=== PATIENT | female | born 1995 | race Caucasian/White ===

== ENCOUNTER 2018-12-06 18:20 | Emergency (ER) | payer SELFPAY ==
[~2018-12-06] VITALS: Ht 149.9 cm; Wt 49.7 kg
--- NOTE | 2018-12-06 18:50 | NUR ---
NO ANSWER WHEN CALLED FROM [facility]OB[facility] X 1
[2018-12-06 19:05] VITALS: BP 115/78
--- NOTE | 2018-12-06 20:34 | NUR ---
AMBULATED W/OUT DIFFICULTY TO DISCHARGE DESK. REVIEWED MEDICATION PLAN/IMPORTANCE OF RICE F/U W/ PCP FOR CONTINUED EVAL NEEDED FOR CONTINUED DISCOMFORT
== END 2018-12-06 20:38 | disposition home or self-care (01) ==
LOC: ED 20:32
DX: S76.312A Strain of muscle, fascia and tendon of the posterior muscle group at thigh level, left thigh, initial encounter (principal); R04.2 Hemoptysis; X58.XXXA Exposure to other specified factors, initial encounter; Y93.89 Activity, other specified; Y92.89 Other specified places as the place of occurrence of the external cause; Y99.8 Other external cause status
CPT/HCPCS: 71046; 99283

== ENCOUNTER 2020-01-10 17:24 | Emergency (ER) | payer OTHER ==
[~2020-01-10] VITALS: Ht 149.9 cm; Wt 46.5 kg
--- NOTE | 2020-01-10 18:10 | NUR ---
PT IS AT THE BEDSIDE WITH HER PARTNER. NO ACUTE CHANGES NOTED SINCE HER ARRIVAL HERE TODAY. SUSPICIOUS URINE SAMPLE DELIVERED TO THE LAB FOR ANALYSIS. PAIN INCREASES AFTER URINATION, HOWEVER IS TOLERABLE OTHERWISE.
[2020-01-10 18:20] LABS: MICROSCOPIC INDICATED
--- NOTE | 2020-01-10 18:58 | NUR ---
SJ (RN) IS ASSUMING CARE OF THIS PT AT THIS TIME. SBAR REPORT WAS EXCHANGED AT THE BEDSIDE.
[2020-01-10 19:03] LABS: HCG UR SG 1.025 (1.003-1.030)
--- NOTE | 2020-01-10 19:10 | NUR ---
assumed care of pt. pt here for painful urination and increased frequency/urgency. pt reports that she has also had hematuria. urine has been collected and sent. pt to CT scan. SO at bedside
[2020-01-10] MEDS ORDERED: CEFDINIR 300 MG CAPSULE ONE (20:16)
[2020-01-10] MEDS ORDERED: CEFDINIR 300 MG CAPSULE PO ONE (20:30)
[2020-01-10 20:35] VITALS: BP 105/74
== END 2020-01-10 20:52 | disposition home or self-care (01) ==
LOC: ED 20:01
DX: N30.01 Acute cystitis with hematuria (principal); R10.2 Pelvic and perineal pain; R30.0 Dysuria
CPT/HCPCS: 74176; 81001; 81025; 87077; 87086; 87186; 99284

== ENCOUNTER 2020-04-05 00:17 | Emergency (ER) | payer OTHER ==
[~2020-04-05] VITALS: Ht 149.9 cm; Wt 48.2 kg
[2020-04-05 01:21] LABS: MICROSCOPIC INDICATED
--- NOTE | 2020-04-05 01:48 | NUR ---
Break RN: urine resulted. chart up for MD to re-eval.
[2020-04-05 02:08] VITALS: BP 104/59
== END 2020-04-05 02:10 | disposition home or self-care (01) ==
LOC: ED 01:49
DX: N30.01 Acute cystitis with hematuria (principal)
CPT/HCPCS: 81001; 81025; 87077; 87086; 87186; 99283

== ENCOUNTER 2020-04-19 12:22 | Emergency (ER) | payer OTHER ==
[~2020-04-19] VITALS: Ht 149.9 cm; Wt 45.2 kg
[2020-04-19 12:50] VITALS: BP 115/82
[2020-04-19] MEDS ORDERED: FAMOTIDINE 20 MG TABLET ONE (13:21)
[2020-04-19] MEDS ORDERED: DIPHENHYDRAMINE 50 MG/ML, 1ML ONE (13:22)
--- NOTE | 2020-04-19 13:29 | NUR ---
Pt medicated per MAR for itching and rash. POC discussed. Pt denies other needs.
[2020-04-19] MEDS ORDERED: FAMOTIDINE 20 MG TABLET PO ONE (13:30)
[2020-04-19] MEDS ORDERED: DIPHENHYDRAMINE 50 MG/ML, 1ML IM ONE (13:30)
== END 2020-04-19 14:38 | disposition home or self-care (01) ==
LOC: ED 13:30
DX: T78.49XA Other allergy, initial encounter (principal); X58.XXXA Exposure to other specified factors, initial encounter; Y93.89 Activity, other specified; Y92.89 Other specified places as the place of occurrence of the external cause; Y99.8 Other external cause status
CPT/HCPCS: 96372; 99283; J1200; J7512

== ENCOUNTER 2020-08-01 21:17 | Emergency (ER) | payer OTHER ==
[~2020-08-01] VITALS: Ht 149.9 cm; Wt 47.0 kg
[2020-08-01 21:22] VITALS: BP 114/76
[2020-08-01] MEDS ORDERED: ACETAMINOPHEN 325 MG TABLET PO ONE (22:00)
[2020-08-01 22:47] LABS: HCG UR SG 1.008 (1.003-1.030)
[2020-08-01 22:49] LABS: MICROSCOPIC INDICATED
== END 2020-08-01 23:52 | disposition home or self-care (01) ==
LOC: ED 21:56
DX: N30.01 Acute cystitis with hematuria (principal); R30.0 Dysuria
CPT/HCPCS: 81001; 81025; 87077; 87086; 87186; 99283

== ENCOUNTER 2020-09-26 23:20 | Emergency (ER) | payer OTHER ==
[~2020-09-26] VITALS: Ht 149.9 cm; Wt 47.0 kg
[2020-09-26 23:21] VITALS: BP 98/71
[2020-09-27 00:03] LABS: HCG UR SG 1.009 (1.003-1.030); MICROSCOPIC AUTO
[2020-09-27] MEDS ORDERED: CEFDINIR 300 MG CAPSULE ONE (00:21)
[2020-09-27] MEDS ORDERED: PHENAZOPYRIDINE 200 MG TABLET ONE (00:29)
[2020-09-27] MEDS ORDERED: PHENAZOPYRIDINE 200 MG TABLET PO ONE (00:30)
[2020-09-27] MEDS ORDERED: CEFDINIR 300 MG CAPSULE PO ONE (00:30)
--- NOTE | 2020-09-27 01:03 | NUR ---
PT DISCHARGED PER PROVIDER ORDER. PT A/O X4 WITH STEADY GAIT. PT MEDICATED PER MAR WITH DISCHARGE PAPERS AND RX IN PT HAND AT DISCHARGE.
== END 2020-09-27 01:06 | disposition home or self-care (01) ==
LOC: ED 09-27 01:04
DX: N30.01 Acute cystitis with hematuria (principal)
CPT/HCPCS: 76770; 81001; 81025; 87077; 87086; 87186; 87491; 87591; 99284

== ENCOUNTER 2020-10-08 16:05 | Emergency (ER) | payer OTHER ==
[~2020-10-08] VITALS: Ht 149.9 cm; Wt 45.0 kg
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
[2020-10-08] MEDS ORDERED: LIDOCAINE-MPF 1%, 5ML ONE (16:47)
[2020-10-08] MEDS ORDERED: ACETAMINOPHEN 500 MG TABLET ONE (16:48)
[2020-10-08] MEDS ORDERED: L.E.T SOLUTION TP ONE ×2 (16:48→17:00)
[2020-10-08] MEDS ORDERED: DIPH,PERTUSS(ACELL),TET VAC/PF 0.5 ML IM-VACC ONE ×2 (16:48→17:00)
[2020-10-08] MEDS ORDERED: ONDANSETRON ODT 4 MG PO ONE (17:00)
[2020-10-08] MEDS ORDERED: ACETAMINOPHEN 500 MG TABLET PO ONE (17:00)
[2020-10-08] MEDS ORDERED: LIDOCAINE-MPF 1%, 5ML INFIL ONE (17:00)
[2020-10-08] MEDS ORDERED: ONDANSETRON ODT 4 MG ONE (17:20)
--- NOTE | 2020-10-08 17:25 | NUR ---
PT RESTING ON GURNEY. NADN. KING.
[2020-10-08 18:38] VITALS: BP 110/54
--- NOTE | 2020-10-08 18:39 | NUR ---
PT RESTING ON GURNEY. NADN. KING.
[2020-10-08] MEDS ORDERED: NEOSPORIN OINT. PKT 1 PACKET ONE (18:41)
== END 2020-10-08 18:56 | disposition home or self-care (01) ==
LOC: ED 18:15
DX: S06.0X0A Concussion without loss of consciousness, initial encounter (principal); S01.01XA Laceration without foreign body of scalp, initial encounter; W22.8XXA Striking against or struck by other objects, initial encounter; Y93.89 Activity, other specified; Y92.328 Other athletic field as the place of occurrence of the external cause; Y99.8 Other external cause status
CPT/HCPCS: 12001; 90471; 90715; 99283; Q0162